=== PATIENT | female | born 1995 | race Caucasian/White ===

== ENCOUNTER 2018-08-19 11:38 | Inpatient (IN) ==
[2018-08-19] MEDS ORDERED: Naloxone Inj 0.4 MG/ML Vial IV.PUSH PRN ×2 (13:23→20:42)
[2018-08-19] MEDS ORDERED: Sod Chloride 0.9% Inj 1,000 ML IV.CONT PRN (13:23)
[2018-08-19] MEDS ORDERED: Sodium Chlor 0.9% Inj 500 ML IV.SIG PRN (13:23)
[2018-08-19] MEDS ORDERED: Oxytocin 30 Units/500ml Premix 30 UNITS/500 ML BAG IV.SIG ONE (13:23)
[2018-08-19] MEDS ORDERED: fentaNYL Citrate Inj 100 MCG/2 ML Ampul IV.PUSH PRN ×2 (13:23)
[2018-08-19] MEDS ORDERED: Oxytocin 30 Units/500ml Premix 30 UNITS/500 ML BAG IV.CONT PRN ×2 (13:23→20:42)
[2018-08-19] MEDS ORDERED: Citric Acid/Sodium Citrate Liq 30 ML UDC PO SCH (13:30)
--- NOTE | 2018-08-19 13:33 | P.HPOB ---
History of Present Illness Service: obstetrics Primary Care Physician: No Primary Care Physician Chief Complaint: oligohydramnios, term labor induction History of Present Illness: 22 yo G1 with EDC 08/23/[address] Manjarrez's, I saw today for OB visit in office as Dr. Manjarrez is out of town. Pt has been followed with weekly testing due to size less than dates, today 01/23 BPP -2 for NELA and -2 for breathing, NELA 1.9cm. Reactive NST in office. SVE 3/50/-3 posterior but stretchy. Pt understands indication for induction. Does c/o pelvic cramping and pressure, not sure if contractions. No LOF or VB. Endorses good FM. Weeks Gestation:: 39 Para: 0 : 1 - Inpatient Certification I certify that the inpatient services were ordered in accordance with Medicare regulations governing the order. This includes certification that hospital inpatient services are reasonable and necessary and in the case of services not specified as inpatient-only under 42 CFR 419.22(n), that they are appropriately provided as inpatient services in accordance to with the 2-midnight benchmark under 43 CFR 412.3(e) Estimated Total Length of Stay (Days): 5 Plans for Post Hospital Care: Home Review of Systems All other systems reviewed negative except as stated in HPI PMFSH - History History Provided By: Patient - Medical / Surgical Hx Neg / Unobtainable Medical Problems Denied: Yes Surgical History: No Previous Surgery - Medical History Medical History: Medical History (Last Updated 08/19/18 @ 13:28 by Nat Jaquez MD) History of chlamydia - Social History I have reviewed the patient's Social History: Yes - Tobacco History Second Hand Smoke Exposure: No Tobacco Use In Past 30 Days: No Smoking Status: Never smoker - Alcohol History How Often Do You Have a Drink Containing Alcohol: Never - Substance Use History Substance History: No History of Abuse - Travel History History of Recent Travel: No Recent Travel in the [place] Within the Last 8 Weeks: No Recent Travel Out of the Country Within the Last 8 Weeks: No - Immunization History Hx Influenza Vaccine This Season: No Medications and Allergies Allergies Allergy/AdvReac Type Severity Reaction Status Date / Time amoxicillin Allergy Swelling Verified 08/15/18 17:31 latex AdvReac Mild skin Verified 08/19/18 12:04 irritation Home Medications Medication Instructions Recorded Confirmed Type iron 18 mg PO DAILY 12/31/18 12/31/18 History Exam Vital signs: Vital Signs 08/19/18 12:06 Temperature 98.5 F Pulse Rate 100 H Respiratory Rate 18 Blood Pressure 126/74 Intake & Output 08/18/18 08/19/18 08/19/18 18:59 06:59 18:59 Weight 66.678 kg - Constitutional no acute distress - Routine HEENT Exam Head: Present: normocephalic Eye: Present: EOMI ENT: Present: mucous membranes moist - Routine Neck Exam Present: supple - Routine Chest/Breast/Axilla Exam Chest wall: Absent: tenderness - Routine Respiratory Exam Absent: accessory muscle use, respiratory distress - Routine Cardiovascular Exam Present: RRR - Routine Abdominal Exam Comments: gravid c/w dates - Routine Extremities Exam Absent: cyanosis, clubbing - Routine Skin Exam Present: intact. Absent: erythema - Routine Neurological Exam Present: alert, oriented X3 Results - Labs Group B Strep: Negative Caprini VTE Risk Assessment Caprini VTE Risk Assessment: No/Low Risk (score <= 1) VTE Pharmacological Exception Reason: Epidural catheter Caprini Risk Assessment Model: Point Value = 1 Point Value = 2 Point Value = 3 Point Value = 5 Age 41-60 Minor surgery BMI > 25 kg/m2 Swollen legs Varicose veins or History of unexplained or recurrent spontaneous Oral contraceptives or hormone replacement Sepsis (< 1 month) Serious lung disease, including pneumonia (< 1 month) Abnormal pulmonary function Acute myocardial infarction Congestive heart failure (< 1 month) History of inflammatory bowel disease Medical patient at bed rest Age 61-74 Arthroscopic surgery Major open surgery (> 45 min) Laparoscopic surgery (> 45 min) Malignancy Confined to bed (> 72 hours) Immobilizing plaster cast Central venous access Age >= 75 History of VTE Family history of VTE Factor V Leiden Prothrombin [id number] Lupus anticoagulant Anticardiolipin antibodies Elevated serum homocysteine Heparin-induced thrombocytopenia Other congenital or acquired thrombophilia Stroke (< 1 month) Elective arthroplasty Hip, pelvis, or leg fracture Acute spinal cord injury (< 1 month) Prophylaxis Regimen: Total Risk Factor Score Risk Level Prophylaxis Regimen 0-1 Low Early ambulation 2 Moderate Order ONE of the following: *Sequential Compression Device (SCD) *Heparin 5000 units SQ BID 3-4 Higher Order ONE of the following medications: *Heparin 5000 units SQ TID *Enoxaparin/Lovenox 40 mg SQ daily (WT < 150 kg, CrCl > 30 mL/min) *Enoxaparin/Lovenox 30 mg SQ daily (WT < 150 kg, CrCl > 10-29 mL/min) *Enoxaparin/Lovenox 30 mg SQ BID (WT < 150 kg, CrCl > 30 mL/min) AND/OR *Sequential Compression Device (SCD) 5 or more Highest Order ONE of the following medications: *Heparin 5000 units SQ TID (Preferred with Epidurals) *Enoxaparin/Lovenox 40 mg SQ daily (WT < 150 kg, CrCl > 30 mL/min) *Enoxaparin/Lovenox 30 mg SQ daily (WT < 150 kg, CrCl > 10-29 mL/min) *Enoxaparin/Lovenox 30 mg SQ BID (WT < 150 kg, CrCl > 30 mL/min) AND *Sequential Compression Device (SCD) Assessment and Plan - Diagnosis (1) Oligohydramnios Code(s): O41.00X0 - Oligohydramnios, unspecified trimester, not applicable or unspecified Status: Acute (2) 39 weeks gestation of Code(s): Z3A.39 - 39 weeks gestation of Status: Acute - Plan 22 yo G1 with quezada IUP at 39w3d admit for term induction due to oligohydramnios found on routine office testing. 1) oligohydramnios/IOL: pt has favorable cervix for pitocin induction, reviewed with pt r/b/a of induction, risk of failure, risk of , pt verbalizes understanding of all risks and consents to induction as indicated; NELA 1.9cm 2) small for dates: reassuring testing weekly in office from 36 weeks until today, first time oligohydramnios noted 3) GBS neg 4) hx of +chlamydia in first trimester: test of cure negative after treatment 5) status: R NST in office. female "Reta"; EFW 30%tile at last sono 2017, AC 6%tile, normal office testing and weekly dopplers since 36 weeks 6) dispo: anticipate d/c to home 2-3d PP Discharge Planning: routine, 2-3d PP
[2018-08-19 15:30] LABS: Baso % (Auto) 0.3 % (0.0-2.0); Eos % (Auto) 0.2 % (0.0-4.0); Hemoglobin 12.6 gm/dL (11.6-15.3); Lymph # (Auto) 1.7 th/mm3 (1.0-4.8); Lymph % (Auto) 24.3 % (9.0-44.0); Mean Corpuscular HGB Conc 33.9 % (32.0-36.0); Mean Corpuscular Hemoglobin 31.3 pg (27.0-34.0); Mean Corpuscular Volume 92.4 fL (80.0-100.0); Mean Platelet Volume 8.5 fL (7.0-11.0); Mono # (Auto) 0.5 th/mm3 (0.0-0.9); Mono % (Auto) 6.8 % (0.0-8.0); Neut # (Auto) 4.7 th/mm3 (1.8-7.7); Neut % (Auto) 68.4 % (16.0-70.0); Platelet Count 116 th/mm3 (150-450); Red Blood Count 4.01 mil/mm3 (4.00-5.30); Red Cell Distribution Width 16.3 % (11.6-17.2); White Blood Count 6.8 th/mm3 (4.0-11.0)
[2018-08-19 15:37] LABS: Bacteria,Urine Occasional /hpf; Bilirubin,Urine Negative (Negative); Clarity,Urine Hazy (Clear); Color,Urine Yellow (Yellw/Straw); Glucose,Urine (UA) Negative (Negative); Leukocyte Esterase,Urine Moderate (Negative); Nitrite,Urine Negative (Negative); Specific Gravity,Urine 1.006 (1.002-1.035); Squamous Epithelial Cell,Urine 4 /hpf (0-5)
--- NOTE | 2018-08-19 15:45 | P.OBLABOR ---
Subjective Interval history: having regular contractions no leaking or bleeding notes movement Objective Vital Signs: Vital Signs - 8 hr 08/19/18 12:06 08/19/18 14:00 08/19/18 14:30 Temperature 98.5 F Pulse Rate 100 H 90 84 Respiratory Rate 18 16 Blood Pressure 126/74 121/73 131/72 08/19/18 15:00 08/19/18 15:30 Temperature 98.3 F Pulse Rate 88 90 Respiratory Rate 20 Blood Pressure 121/74 120/73 Objective: Pelvic Exam: 5/90/0/posterior arom thick mec vs old blood strip category one Patient Started Active Labor: Yes Medical Induction of Labor: Yes Artificial Rupture of Membrane: Yes Artificial ROM Date: 08/19/18 Artificial ROM Time: 15:44 Assessment and Plan - Diagnosis (1) Oligohydramnios Code(s): O41.00X0 - Oligohydramnios, unspecified trimester, not applicable or unspecified Status: Acute (2) 39 weeks gestation of Code(s): Z3A.39 - 39 weeks gestation of Status: Acute - Plan 22 yo G1 with quezada IUP at 39w3d admit for term induction due to oligohydramnios found on routine office testing. 1) oligohydramnios/IOL: pt has favorable cervix for pitocin induction, reviewed with pt r/b/a of induction, risk of failure, risk of , pt verbalizes understanding of all risks and consents to induction as indicated; NELA 1.9cm 2) small for dates: reassuring testing weekly in office from 36 weeks until today, first time oligohydramnios noted 3) GBS neg 4) hx of +chlamydia in first trimester: test of cure negative after treatment 5) status: R NST in office. female "Reta"; EFW 30%tile at last sono 2017, AC 6%tile, normal office testing and weekly dopplers since 36 weeks 6) dispo: anticipate d/c to home 2-3d PP 08/19/18 15:30 place IUP and consider amnioinfusion once she has epidural watch for intolerance of labor Discharge Planning: routine, 2-3d PP
[2018-08-19] MEDS ORDERED: Varicella Vaccine Live 1350 UNITS/0.5 ML Vial SQ ONE (16:00)
[2018-08-19] MEDS ORDERED: Measles/Mumps/Rubella Vaccine Inj 0.5 ML Vial SQ ONE (16:00)
[2018-08-19] MEDS ORDERED: Diphtheria/Tetanus/Pertussis Vaccine Inj 0.5 ML Syringe IM ONE (16:00)
[2018-08-19] MEDS ORDERED: fentaNYL 2MCG-Bupiv 0.125% Epi 150 ML EPIDURAL ONE (16:06)
[2018-08-19] MEDS ORDERED: Lidocaine PF 1% Inj 5 ML Vial ONE (17:03)
[2018-08-19] MEDS ORDERED: Lidocaaine 1.5%/Epinephrine 1:200,000 PF Inj 5 ML Amp ONE (17:03)
[2018-08-19] MEDS ORDERED: fentaNYL 2MCG-Bupiv 0.125% Epi 150 ML EPIDURAL PRN (17:43)
[2018-08-19] MEDS ORDERED: fentaNYL Citrate Inj 100 MCG/2 ML Ampul EPIDURAL ONE (17:43)
[2018-08-19] MEDS ORDERED: Benzocaine 20% Top Spray 60 ML Can TOPICAL PRN (20:42)
[2018-08-19] MEDS ORDERED: Bisacodyl 10 MG Supp RECTAL PRN (20:42)
[2018-08-19] MEDS ORDERED: Zolpidem Tartrate 5 MG Tablet PO PRN (20:42)
[2018-08-19] MEDS ORDERED: Witch Hazel 50%/Glyderin 12.5% 40 Pad Jar RECTAL PRN (20:42)
--- NOTE | 2018-08-19 20:42 | P.OBDELI ---
Weeks Gestation: 39 Patient Started Active Labor: Yes Medical Induction of Labor: Yes Artificial Rupture of Membrane: Yes Anesthesia: Epidural Episiotomy: none Vaginal Delivery: Normal Presentation: Occiput anterior Nuchal Cord: None Delayed Cord Clamping (45 sec): Yes Placenta: Spontaneous delivery, Intact, 3 vessel cord Laceration: 1 deg Repair: Chromic running Estimated blood loss (mL): 500 : Female Female A Infant Delivery Date: 08/19/18 Delivery Time: 20:41 Weight: 3 kg score (1 min): 8 score (5 min): 9
[2018-08-19] MEDS: Senna/Docusate Sodium 8.6/50 MG Tablet PO SCH (22:53)
[2018-08-19] MEDS: Acetaminophen 325 MG Tablet PO PRN (22:55)
[2018-08-20] MEDS: Senna/Docusate Sodium 8.6/50 MG Tablet PO SCH ×3 (01:35→22:05)
[2018-08-20] MEDS: Acetaminophen 325 MG Tablet PO PRN ×3 (11:56→22:03)
--- NOTE | 2018-08-20 12:33 | P.PNOB ---
Subjective Post day: 1 Interval history: doing well with no complaints tender on left labia nursing well Objective Vital Signs/I&O: Vital Signs 08/19/18 14:00 08/19/18 14:30 08/19/18 15:00 Temperature 98.3 F Pulse Rate 90 84 88 Respiratory Rate 16 20 Blood Pressure 121/73 131/72 121/74 08/19/18 15:30 08/19/18 16:00 08/19/18 16:01 Temperature 98.0 F Pulse Rate 91 H 80 78 Respiratory Rate 18 Blood Pressure 120/73 124/74 128/76 08/19/18 16:40 08/19/18 16:56 08/19/18 17:00 Temperature 98.3 F Pulse Rate 89 101 H Respiratory Rate 18 Blood Pressure 122/50 L 135/68 08/19/18 17:10 08/19/18 17:20 08/19/18 17:25 Temperature Pulse Rate 73 80 85 Respiratory Rate Blood Pressure 100/52 L 113/65 08/19/18 17:40 08/19/18 17:55 08/19/18 18:10 Temperature Pulse Rate 83 79 78 Respiratory Rate Blood Pressure 111/52 L 114/64 119/64 08/19/18 18:25 08/19/18 18:40 08/19/18 18:55 Temperature 99.1 F 99.5 F Pulse Rate 80 77 78 Respiratory Rate 18 Blood Pressure 116/64 105/41 L 121/63 08/19/18 19:25 08/19/18 20:00 08/19/18 20:16 Temperature Pulse Rate 80 117 H Respiratory Rate 20 Blood Pressure 105/56 L 109/62 08/19/18 20:30 08/19/18 21:00 08/19/18 21:15 Temperature 99.4 F Pulse Rate 77 111 H Respiratory Rate 20 18 Blood Pressure 125/58 L 114/79 08/19/18 22:38 08/19/18 23:15 08/20/18 05:00 Temperature 98.4 F Pulse Rate 86 Respiratory Rate 18 16 16 Blood Pressure 114/76 08/20/18 08:00 Temperature 98.3 F Pulse Rate 113 H Respiratory Rate 18 Blood Pressure 116/72 Intake & Output 08/19/18 08/20/18 08/20/18 18:59 06:59 18:59 Intake Total 1000 / 1000 1000 / 1000 Balance 1000 / 1000 1000 / 1000 Weight 66.678 kg Intake: IV 1000 / 1000 1000 / 1000 LR 1000 mL Inj 1,000 ML @ 125 1000 / 1000 1000 / 1000 mls/hr IV.CONT .Q8H [facility] Rx#: [id number] Result Diagrams: 08/19/18 12:00 Objective Remarks: GENERAL: Well-nourished, well-developed patient. CARDIOVASCULAR: Regular rate and rhythm without murmurs, gallops, or rubs. RESPIRATORY: Breath sounds equal bilaterally. No accessory muscle use. ABDOMEN/GI: Abdomen soft, non-tender. Fundus: Firm, non-tender at umbilicus. GENITOURINARY: Light to moderate bleeding. labia not overly swollen or echymotic EXTREMITIES: No cyanosis or edema, non-tender, without signs of DVT. Medications and IVs: Active Medications Acetaminophen (Tylenol) 650 mg PO Q4H PRN PRN Reason: PAIN SCALE 1 TO 2 Last Admin: 08/20/18 11:56 Dose: 650 mg Al Hydroxide/Mg Hydroxide (Milk Of Magnesia Liq) 30 ml PO Q12H PRN PRN Reason: Mild Constipation Benzocaine (Americaine 20% Top [place]) 1 spray TOPICAL Q4H PRN PRN Reason: For Perineum Discomfort Last Admin: 08/19/18 22:54 Dose: 1 spray Bisacodyl (Dulcolax Supp) 10 mg RECTAL DAILY PRN PRN Reason: SEVERE CONSITIPATION Citric Acid/Sodium Citrate (Sodium Citrate/Citric Acid Liq) [address] ENGINEER [facility] Stop: 08/23/18 13:29 Ephedrine Sulfate (Ephedrine/Ns Syringe) 10 mg IV.PUSH UNSCH PRN PRN Reason: SEE LABEL COMMENTS Stop: 08/20/18 17:43 Fentanyl Citrate (Fentanyl Inj) 50 mcg IV.PUSH Q1H PRN PRN Reason: Pain Scale 3 - 5 Fentanyl Citrate (Fentanyl Inj) 100 mcg IV.PUSH Q1H PRN PRN Reason: PAIN SCALE 6 TO 10 Lactated Ringer's (Lr 1000 Ml Inj) 1,000 mls @ 125 mls/hr IV.CONT .Q8H [facility] Last Admin: 08/19/18 22:58 Dose: 125 mls/hr Lactated Ringer's (Lr 1000 Ml Inj) 1,000 mls @ 3,000 mls/hr IV.SIG UNSCH PRN PRN Reason: compromise or epidural Last Admin: 08/19/18 16:14 Dose: 3,000 mls/hr Sodium Chloride (Ns Inj) 500 mls @ 1,000 mls/hr IV.SIG UNSCH PRN PRN Reason: SEE LABEL COMMENTS Sodium Chloride (Ns Inj) 1,000 mls @ 100 mls/hr IV.CONT .Q10H PRN PRN Reason: SEE LABEL COMMENTS Oxytocin (Pitocin 30 Units/Ns 500 Ml Premix) 30 units in 500 mls @ 2 mls/hr IV.CONT TITRATE PRN; Protocol PRN Reason: For induction of labor Last Admin: 08/19/18 13:51 Dose: 2 milliunit/min, 2 mls/hr Fentanyl/Bupivacaine/Sodium Chlor (Fentanyl 2 Mcg-Bupiv 0.125% Epi) 150 mls @ 10 mls/hr EPIDURAL PRN PRN PRN Reason: for Labor Pain Oxytocin (Pitocin 30 Units/Ns 500 Ml Premix) 30 units in 500 mls @ 100 mls/hr IV.CONT UNSCH PRN PRN Reason: Heavy bleeding Ibuprofen (Motrin) 800 mg PO Q8H PRN PRN Reason: For Cramping Last Admin: 08/19/18 22:54 Dose: 800 mg Lactulose (Lactulose Liq) 30 ml PO DAILY PRN PRN Reason: SEVERE CONSITIPATION Lidocaine HCl (Xylocaine 1% Inj) 0.1 ml I-DERMAL PRN PRN PRN Reason: For IV start Stop: 08/22/18 13:22 Lidocaine HCl (Xylocaine 1% Inj) 10 ml INFILTRATN PRN PRN PRN Reason: For episiotomy repair Stop: 08/21/18 13:22 Mineral Oil (Muri-Lube Oil) 10 ml TOPICAL PRN PRN PRN Reason: PRN perineal massage Miscellaneous Information (Misc Information) 1 each OTHER UNSCH PRN PRN Reason: SEE LABEL COMMENTS Stop: 08/20/18 17:43 Miscellaneous Information (Misc Information) 1 each OTHER UNSCH PRN PRN Reason: SEE LABEL COMMENTS Stop: 08/20/18 17:43 Naloxone HCl (Narcan Inj) 0.1 mg IV.PUSH Q2M PRN PRN Reason: for opiate reversal Naloxone HCl (Narcan Inj) 0.1 mg IV.PUSH Q2M PRN PRN Reason: for opiate reversal Ondansetron HCl (Zofran Inj) 4 mg IV.PUSH Q6H PRN PRN Reason: NAUSEA OR VOMITING Last Admin: 08/19/18 17:54 Dose: 4 mg Ondansetron HCl (Zofran Odt) 4 mg PO Q6H PRN PRN Reason: NAUSEA OR VOMITING Vit/Calcium/Iron/Folic Ac (Stuartnatal Plus 3) 1 tab PO DAILY [facility] Senna/Docusate Sodium (Nanda-Colace) 1 tab PO BID [facility] Last Admin: 08/20/18 01:35 Dose: Not Given Sennosides (Senokot) 17.2 mg PO Q12H PRN PRN Reason: Moderate Constipation Sodium Chloride (Ns Flush) 2 ml IV.FLUSH BID [facility] Last Admin: 08/19/18 22:05 Dose: Not Given Sodium Chloride (Ns Flush) 2 ml IV.FLUSH PRN PRN PRN Reason: FLUSH AFTER USING IV ACCESS Witch Tamika/Glycerin (Tucks Pads) 1 applicatio RECTAL QID PRN PRN Reason: HEMORRHOIDS Last Admin: 08/19/18 22:55 Dose: 1 applicatio Zolpidem Tartrate (Ambien) 5 mg PO HS PRN PRN Reason: SLEEP Assessment and Plan - Diagnosis (1) Oligohydramnios Code(s): O41.00X0 - Oligohydramnios, unspecified trimester, not applicable or unspecified Status: Acute (2) 39 weeks gestation of Code(s): Z3A.39 - 39 weeks gestation of Status: Acute Plan: 08/20/18 PPD 1 18 hours post doing well no complaints prepare for discharge Wednesday - Plan 22 yo G1 with quezada IUP at 39w3d admit for term induction due to oligohydramnios found on routine office testing. 1) oligohydramnios/IOL: pt has favorable cervix for pitocin induction, reviewed with pt r/b/a of induction, risk of failure, risk of , pt verbalizes understanding of all risks and consents to induction as indicated; NELA 1.9cm 2) small for dates: reassuring testing weekly in office from 36 weeks until today, first time oligohydramnios noted 3) GBS neg 4) hx of +chlamydia in first trimester: test of cure negative after treatment 5) status: R NST in office. female "Reta"; EFW 30%tile at last sono 2017, AC 6%tile, normal office testing and weekly dopplers since 36 weeks 6) dispo: anticipate d/c to home 2-3d PP 08/19/18 15:30 place IUP and consider amnioinfusion once she has epidural watch for intolerance of labor Discharge Planning: routine, 2-3d PP
[2018-08-20] MEDS: Prenatal Vit/Ca/Iron/Folic Acid Tablet PO SCH (17:02)
[2018-08-21] MEDS: Senna/Docusate Sodium 8.6/50 MG Tablet PO SCH (08:16)
[2018-08-21] MEDS: Acetaminophen 325 MG Tablet PO PRN (08:16)
[2018-08-21] MEDS: Prenatal Vit/Ca/Iron/Folic Acid Tablet PO SCH (08:55)
[2018-08-21 09:02] VITALS: BP 107/71; PULSE 76; RESP 16
[2018-08-21 09:03] VITALS: TEMP 98.3
--- NOTE | 2018-08-21 12:19 | P.PNOB ---
Subjective Post day: 2 Interval history: doing well attempting nursing mild anxiety ready for discharge Objective Vital Signs/I&O: Vital Signs 08/20/18 20:00 08/21/18 08:00 Temperature 98.0 F 98.3 F Pulse Rate 97 H 76 Respiratory Rate 18 16 Blood Pressure 107/69 107/71 Result Diagrams: 08/19/18 12:00 Objective Remarks: GENERAL: Well-nourished, well-developed patient. CARDIOVASCULAR: Regular rate and rhythm without murmurs, gallops, or rubs. RESPIRATORY: Breath sounds equal bilaterally. No accessory muscle use. ABDOMEN/GI: Abdomen soft, non-tender. Fundus: Firm, non-tender at umbilicus. GENITOURINARY: Light to moderate bleeding. EXTREMITIES: No cyanosis or edema, non-tender, without signs of DVT. Medications and IVs: Active Medications Acetaminophen (Tylenol) 650 mg PO Q4H PRN PRN Reason: PAIN SCALE 1 TO 2 Last Admin: 08/21/18 08:16 Dose: 650 mg Al Hydroxide/Mg Hydroxide (Milk Of Magnesia Liq) 30 ml PO Q12H PRN PRN Reason: Mild Constipation Benzocaine (Americaine 20% Top [place]) 1 spray TOPICAL Q4H PRN PRN Reason: For Perineum Discomfort Last Admin: 08/19/18 22:54 Dose: 1 spray Bisacodyl (Dulcolax Supp) 10 mg RECTAL DAILY PRN PRN Reason: SEVERE CONSITIPATION Citric Acid/Sodium Citrate (Sodium Citrate/Citric Acid Liq) 30 ml PO [employer] TECHNICIAN [facility] Stop: 08/23/18 13:29 Fentanyl Citrate (Fentanyl Inj) 50 mcg IV.PUSH Q1H PRN PRN Reason: Pain Scale 3 - 5 Fentanyl Citrate (Fentanyl Inj) 100 mcg IV.PUSH Q1H PRN PRN Reason: PAIN SCALE 6 TO 10 Lactated Ringer's (Lr 1000 Ml Inj) 1,000 mls @ 125 mls/hr IV.CONT .Q8H [facility] Last Admin: 08/19/18 22:58 Dose: 125 mls/hr Lactated Ringer's (Lr 1000 Ml Inj) 1,000 mls @ 3,000 mls/hr IV.SIG UNSCH PRN PRN Reason: compromise or epidural Last Admin: 08/19/18 16:14 Dose: 3,000 mls/hr Sodium Chloride (Ns Inj) 500 mls @ 1,000 mls/hr IV.SIG UNSCH PRN PRN Reason: SEE LABEL COMMENTS Sodium Chloride (Ns Inj) 1,000 mls @ 100 mls/hr IV.CONT .Q10H PRN PRN Reason: SEE LABEL COMMENTS Oxytocin (Pitocin 30 Units/Ns 500 Ml Premix) 30 units in 500 mls @ 2 mls/hr IV.CONT TITRATE PRN; Protocol PRN Reason: For induction of labor Last Admin: 08/19/18 13:51 Dose: 2 milliunit/min, 2 mls/hr Fentanyl/Bupivacaine/Sodium Chlor (Fentanyl 2 Mcg-Bupiv 0.125% Epi) 150 mls @ 10 mls/hr EPIDURAL PRN PRN PRN Reason: for Labor Pain Oxytocin (Pitocin 30 Units/Ns 500 Ml Premix) 30 units in 500 mls @ 100 mls/hr IV.CONT UNSCH PRN PRN Reason: Heavy bleeding Ibuprofen (Motrin) 800 mg PO Q8H PRN PRN Reason: For Cramping Last Admin: 08/21/18 08:16 Dose: 800 mg Lactulose (Lactulose Liq) 30 ml PO DAILY PRN PRN Reason: SEVERE CONSITIPATION Lidocaine HCl (Xylocaine 1% Inj) 0.1 ml I-DERMAL PRN PRN PRN Reason: For IV start Stop: 08/22/18 13:22 Lidocaine HCl (Xylocaine 1% Inj) 10 ml INFILTRATN PRN PRN PRN Reason: For episiotomy repair Stop: 08/21/18 13:22 Mineral Oil (Muri-Lube Oil) 10 ml TOPICAL PRN PRN PRN Reason: PRN perineal massage Naloxone HCl (Narcan Inj) 0.1 mg IV.PUSH Q2M PRN PRN Reason: for opiate reversal Naloxone HCl (Narcan Inj) 0.1 mg IV.PUSH Q2M PRN PRN Reason: for opiate reversal Ondansetron HCl (Zofran Inj) 4 mg IV.PUSH Q6H PRN PRN Reason: NAUSEA OR VOMITING Last Admin: 08/19/18 17:54 Dose: 4 mg Ondansetron HCl (Zofran Odt) 4 mg PO Q6H PRN PRN Reason: NAUSEA OR VOMITING Vit/Calcium/Iron/Folic Ac (Stuartnatal Plus 3) 1 tab PO DAILY [facility] Last Admin: 08/21/18 08:55 Dose: Not Given Senna/Docusate Sodium (Nanda-Colace) 1 tab PO BID [facility] Last Admin: 08/21/18 08:16 Dose: 1 tab Sennosides (Senokot) 17.2 mg PO Q12H PRN PRN Reason: Moderate Constipation Sodium Chloride (Ns Flush) 2 ml IV.FLUSH BID [facility] Last Admin: 08/21/18 08:56 Dose: Not Given Sodium Chloride (Ns Flush) 2 ml IV.FLUSH PRN PRN PRN Reason: FLUSH AFTER USING IV ACCESS Witch Tamika/Glycerin (Tucks Pads) 1 applicatio RECTAL QID PRN PRN Reason: HEMORRHOIDS Last Admin: 08/19/18 22:55 Dose: 1 applicatio Zolpidem Tartrate (Ambien) 5 mg PO HS PRN PRN Reason: SLEEP Assessment and Plan - Diagnosis (1) Oligohydramnios Code(s): O41.00X0 - Oligohydramnios, unspecified trimester, not applicable or unspecified Status: Acute (2) 39 weeks gestation of Code(s): Z3A.39 - 39 weeks gestation of Status: Acute Plan: 08/20/18 PPD 1 18 hours post doing well no complaints prepare for discharge Wednesday - Plan 22 yo G1 with quezada IUP at 39w3d admit for term induction due to oligohydramnios found on routine office testing. 1) oligohydramnios/IOL: pt has favorable cervix for pitocin induction, reviewed with pt r/b/a of induction, risk of failure, risk of , pt verbalizes understanding of all risks and consents to induction as indicated; NELA 1.9cm 2) small for dates: reassuring testing weekly in office from 36 weeks until today, first time oligohydramnios noted 3) GBS neg 4) hx of +chlamydia in first trimester: test of cure negative after treatment 5) status: R NST in office. female "Reta"; EFW 30%tile at last sono 2017, AC 6%tile, normal office testing and weekly dopplers since 36 weeks 6) dispo: anticipate d/c to home 2-3d PP 08/19/18 15:30 place IUP and consider amnioinfusion once she has epidural watch for intolerance of labor 08/21/18 ready for discharge counseled on when to call \\return to office two weeks or prn Discharge Planning: routine, 2-3d PP
== END 2018-08-21 14:49 | disposition home or self-care (01) | DRG 807 ==
LOC: H2E 11:38 → H1EA 22:53
PROVIDERS: ADMIT Obstetrics & Gynecology; ATTEND Obstetrics & Gynecology
CPT/HCPCS: 59025; 81001; 85025; 86900; 86901; J2405; J2590; J3010; J7120